=== PATIENT | female | born 1945 | race Two or more races ===

== ENCOUNTER 2020-12-01 18:15 | Emergency (ER) | payer OTHER ==
[~2020-12-01] VITALS: Ht 160 cm; Wt 99.8 kg
[2020-12-01] MEDS ORDERED: SULFASALAZINE500 M1 PO (18:46)
[2020-12-01] MEDS ORDERED: ZOCOR20 MG PO (18:47)
[2020-12-01] MEDS ORDERED: MILLIPRED5 MG PO (18:47)
[2020-12-01] MEDS ORDERED: PANTOPRAZOLE SO40 M2 PO (18:48)
[2020-12-01] MEDS ORDERED: ENALAPRIL MALEA10 MG NGT (18:48)
== END 2020-12-01 22:24 | disposition home or self-care (01) ==
LOC: ER 18:15
DX: S42.221A 2-part displaced fracture of surgical neck of right humerus, initial encounter for closed fracture (principal); W18.09XA Striking against other object with subsequent fall, initial encounter; Y93.89 Activity, other specified; Y92.89 Other specified places as the place of occurrence of the external cause; Y99.8 Other external cause status

== ENCOUNTER 2025-04-05 13:12 | Emergency (ER) | payer OTHER ==
[~2025-04-05] VITALS: Ht 160 cm; Wt 81.2 kg
[~2025-04-05 13:12] MED LIST: ENALAPRIL MALEA10 MG NGT; MILLIPRED5 MG PO; PANTOPRAZOLE SO40 M2 PO; SULFASALAZINE500 M1 PO; ZOCOR20 MG PO
[2025-04-05] MEDS ORDERED: SIMVASTATIN20 MG PO (13:29)
[2025-04-05] MEDS ORDERED: SULFASALAZINE500 M1 PO (13:30)
[2025-04-05] MEDS ORDERED: ENALAPRIL MALEA10 MG (13:30)
[2025-04-05] MEDS ORDERED: HYDROXYCHLOROQ200 MG PO (13:32)
[2025-04-05] MEDS ORDERED: ACETAMINOPHEN 500 MG GEL..CAP PO STA (16:50)
== END 2025-04-05 20:56 | disposition home or self-care (01) ==
LOC: ER 13:12
DX: G89.11 Acute pain due to trauma (principal); R51.9 Headache, unspecified; I10 Essential (primary) hypertension

== ENCOUNTER 2025-08-28 17:35 | Emergency (ER) | payer OTHER ==
[~2025-08-28] VITALS: Ht 157.5 cm; Wt 77.1 kg
[~2025-08-28 17:35] MED LIST changes: +ENALAPRIL MALEA10 MG; +HYDROXYCHLOROQ200 MG PO; +SIMVASTATIN20 MG PO
[2025-08-28] MEDS ORDERED: 0.9 % SODIUM CHLORIDE 500 ML IV ONE (20:30)
[2025-08-28 23:22] LABS: BASO % 0.5 % (0.1-1.2); EOS # 0.09 (0.04-0.54); EOS % 1.6 % (0.7-7.0); LYMPH # 0.67 (1.18-3.74); LYMPH % 11.8 % (19.3-53.1); MEAN PLATELET VOLUME 10.20 fl (9.4-12.4); MONO # 0.26 (0.24-0.82); MONO % 4.6 % (4.7-12.5); NEUT # 4.62 (1.56-6.13); NEUT % 81.0 % (34.0-71.1); RED CELL DISTRIBUTION WIDTH 14.3 % (11.6-14.4)
[2025-08-28 23:42] LABS: INR 1.01
[2025-08-28 23:47] LABS: ALT/SGPT 28.0 U/L (12-78); AST/SGOT 44.0 U/L (15-37); BILIRUBIN TOTAL 0.4 mg/dL (0.3-1.2); BUN CREA RATIO 30.0 (7.0-25.0); CREATININE SERUM 1.11 mg/dL (0.55-1.02); GFR 47.54; GLOBULINA 4.1 G/DL (2.4-3.5); GLUCOSE FASTING 94.0 mg/dL (65-100); OSMOLALITY SERUM 281.0 MOSM/KG (275-295)
[2025-08-28 23:54] LABS: COVID-19 AG NEGATIVE (NEGATIVE)
[2025-08-29 00:32] LABS: URINE APPEARANCE Clear; URINE BILIRRUBIN Negative (NEGATIVE); URINE BLOOD Negative; URINE COLOR Dark Yellow; URINE GLUCOSE Negative (NEGATIVE); URINE KETONE 15 (NEGATIVE); URINE LEUKOCYTE Moderate; URINE NITRATE Negative; URINE UROBILINOGEN 1.0 E.U./dl
[2025-08-29 00:36] LABS: URINE BACTERIA 275.9 uL (0.0-1933); URINE CAST 8.21 uL (0.0-1.40); URINE EPITHELIAL CELLS 17.2 uL (0.0-38.8); URINE RBC 5.8 uL (0.0-20.8); URINE WBC 180.7 uL (0.0-23.2)
[2025-08-29 00:47] LABS: URINE MUCUS MODERATE; URINE PROTEIN 100 (NEGATIVE)
[2025-08-29] MEDS ORDERED: CEFTRIAXONE SODIUM 2,000 MG VIAL IV ONE (04:45)
[2025-08-29] MEDS ORDERED: ACETAMINOPHEN 500 MG GEL..CAP PO ONE (05:00)
[2025-08-29] MEDS ORDERED: MACROBID 100 M100 MG PO (07:05)
== END 2025-08-29 10:54 | disposition home or self-care (01) ==
LOC: ER 17:36
PROVIDERS: General Practice
DX: N39.0 Urinary tract infection, site not specified (principal); R53.1 Weakness; R53.81 Other malaise; E78.00 Pure hypercholesterolemia, unspecified; I10 Essential (primary) hypertension; I49.8 Other specified cardiac arrhythmias; Z20.822 Contact with and (suspected) exposure to COVID-19